=== PATIENT | male | born 1975 | race Caucasian/White ===

== ENCOUNTER 2018-03-24 09:53 | Observation (INO) ==
[2018-03-24] MEDS ORDERED: Nitroglycerin 0.4 MG TAB.SUBL SL ONE (10:00)
[2018-03-24] MEDS ORDERED: Aspirin 81 MG TAB.CHEW PO ONE (10:00)
--- NOTE | 2018-03-24 10:00 | Emergency Department Note ---
Disposition Clinical Impression: Atypical chest pain, Abnormal EKG, Tobacco abuse Disposition: Admitted As Inpatient Condition: Good Referrals: Jason Vicente [Primary Care Provider] - Time of Disposition: 12:54 General Adult HPI - General Chief complaint: ED Chest Pain Stated complaint: Chest pain Time Seen by Provider: 03/24/18 09:59 Nursing Notes Reviewed: Yes Vital Signs Reviewed: Yes - History of Present Illness HPI Narrative: Chest pain that began this morning after drinking cold water. Sharp in nature does not radiate. Does have associated nausea and warm feeling over his whole body. No associated shortness of breath or cough. Has not tried anything to make the pain better or worse it did resolve on its own. Pain Scale: 6 - Related Data Home Medications Medication Instructions Recorded Confirmed Escitalopram [Lexapro] 30 mg PO DAILY 03/24/18 03/24/18 Omeprazole [PriLOSEC] 40 mg PO DAILY PRN 03/24/18 03/24/18 Allergies Allergy/AdvReac Type Severity Reaction Status Date / Time No Known Allergies Allergy Verified 03/24/18 09:54 All systems ED: reviewed and negative except as stated. Constitutional: Denies: fever, chills ENT ED: Denies: congestion Cardiovascular: Reports: chest pain. Denies: palpitations, syncope Respiratory: Denies: cough, dyspnea Gastrointestinal: Reports: nausea. Denies: abdominal pain, vomiting, diarrhea Musculoskeletal: Denies: back pain, neck pain Integumentary: Denies: rash Past Medical History - Past Medical History Attestation: Yes The following information was validated with the patient. Source: patient Physical Exam - General Limitations: no limitations General appearance: alert, in no apparent distress - Head Head exam: atraumatic, normocephalic, normal inspection - Eye Eye exam: Present: normal appearance, PERRL, EOMI - ENT ENT exam: normal exam, normal oropharynx, mucous membranes moist - Neck Neck exam: Present: normal inspection, full ROM, trachea midline - Chest Chest inspection: Present: normal inspection, symmetric chest wall rise - Respiratory Respiratory exam: Present: normal lung sounds bilaterally. Absent: respiratory distress, accessory muscle use - Cardiovascular Cardiovascular exam: Present: regular rate, normal rhythm, normal heart sounds - Abdominal Exam Abdominal exam: Present: soft, Non-Tender. Absent: tenderness, distention, guarding, rebound, rigidity, organomegaly, Meadows's sign, Rovsing's sign, tenderness at McBurney's Point - Extremities Exam Extremities exam: Present: normal inspection, full ROM, normal capillary refill. Absent: tenderness, pedal edema - Neurological Exam Neurological exam: Present: alert, oriented X3 - Psychiatric Psychiatric exam: Present: normal affect, normal mood - Skin Skin exam: Present: warm, dry, intact, normal color Course Course Narrative: No patient presenting to the emergency department complaining of substernal chest pain that began this morning after drinking a drink of cold water. Fetus in the center of his chest. Did resolve. Lasted less than an hour. No radiation. No shortness of breath. Does have some nausea associated with this as well as a warm feeling over his body. He states that he has had feelings like this before that he contributes to anxiety. He does take Lexapro daily and has been taking this medication. Patient is a smoker. Did have a stress test and no cardiac catheter previously. Never had a heart attack before. Lung sounds are clear heart tones are normal abdomen is soft and nontender. He denies a productive cough. We will give patient aspirin and do a cardiac workup on the patient. - Reevaluation(s) Reevaluation #1: Patient reassessed. He states he is chest pain-free at this time. We were able to obtain an old EKG from another facility this did not show the T-wave inversions diffusely. We have provided patient with aspirin. Due to his chest pain and new EKG findings we will make patient to the hospital at this time. He is agreeable with this plan. Time: 12:51 - Consultations Consultation #1: Dr Hancock accepted Pt in stable condition. Time: 13:14 Vital Signs Temperature 98.3 F 03/24/18 09:54 Pulse Rate 83 03/24/18 09:54 Respiratory Rate 16 03/24/18 09:54 Blood Pressure 146/92 03/24/18 09:54 O2 Sat by Pulse Oximetry 97 03/24/18 09:54 Temperature 98.3 F 03/24/18 09:54 Pulse Rate 58 03/24/18 11:52 Respiratory Rate 18 03/24/18 10:55 Blood Pressure 120/86 03/24/18 11:52 O2 Sat by Pulse Oximetry 96 03/24/18 11:52 Oxygen Delivery Oxygen Delivery Room Air Medical Decision Making - Medical Records Medical records reviewed: Yes I reviewed the patient's medical records. - Lab Data Lab results reviewed: Yes I reviewed the patient's lab results. Result diagrams: 03/24/18 10:10 03/24/18 10:10 Lab Results 03/24/18 03/24/18 03/24/18 Range/Units 10:10 10:10 12:00 WBC 8.7 (4.3-11.1) K/mcL RBC 5.21 (4.19-5.50) M/mcL Hgb 16.5 (12.9-16.9) g/dL Hct 47.4 (37.5-50.1) % MCV 91.0 (83.0-100.0) fL MCH 31.7 (28.0-33.3) pg MCHC 34.8 (31.6-35.5) g/dL RDW 13.1 (11.5-14.5) % Plt Count 334 (140-400) K/mcL MPV 9.2 L (9.4-12.4) fL Immature Gran % 0.7 (0-4) % Seg Neutrophils % 60.4 % Lymphocytes % 24.1 % Monocytes % 10.9 % Eosinophils % 2.2 % Basophils % 1.7 % Neutrophils # 5.3 (1.6-8.9) K/mcL Lymphocytes # 2.1 (0.6-4.6) K/mcL Monocytes # 1.0 (0.0-1.3) K/mcL Eosinophils # 0.2 (0.0-0.6) K/mcL Basophils # 0.2 (0.0-0.2) K/mcL Sodium 136 (136-145) mEq/L Potassium 4.1 (3.5-5.1) mEq/L Chloride 105 (98-107) mEq/L Carbon Dioxide 23 (23-29) mEq/L BUN 13 (6-20) mg/dL Creatinine 0.98 (0.70-1.30) mg/dL Est GFR ( Amer) > 60 (> 60) Est GFR (Non-Af Amer) > 60 (> 60) BUN/Creatinine Ratio 13 (6-26) Glucose 132 H (70-105) mg/dL Calculated Osmolality 284 (280-300) Calcium 8.9 (8.6-10.3) mg/dL Troponin I < 0.03 < 0.03 (< 0.04) ng/mL - EKG Data EKG #1 EKG attestation: Yes I reviewed and interpreted this EKG. EKG results narrative: Normal sinus rhythm at a rate of 75. ID interval is 162. QRS duration is 94. QT is 396. QTC is 425. No signs of acute ischemia. No old EKG to compare to. Patient does have T-wave inversion in leads V3 and V4 V5 and V6. As well as aVL and lead 2 and 1 poor R-wave progression.
[2018-03-24 10:24] LABS: Basophils # 0.2 K/mcL (0.0-0.2); Basophils % 1.7 %; Eosinophils # 0.2 K/mcL (0.0-0.6); Eosinophils % 2.2 %; Hematocrit 47.4 % (37.5-50.1); Hemoglobin 16.5 g/dL (12.9-16.9); Immature Granulocytes % 0.7 % (0-4); Lymphocytes # 2.1 K/mcL (0.6-4.6); Lymphocytes % 24.1 %; Mean Corpuscular HGB Conc 34.8 g/dL (31.6-35.5); Mean Corpuscular Hemoglobin 31.7 pg (28.0-33.3); Mean Platelet Volume 9.2 fL (9.4-12.4); Monocytes % 10.9 %; Neutrophils # 5.3 K/mcL (1.6-8.9); Platelet Count 334 K/mcL (140-400); Red Blood Count 5.21 M/mcL (4.19-5.50); Red Cell Distribution Width 13.1 % (11.5-14.5); Segmented Neutrophils % 60.4 %
[2018-03-24 10:44] LABS: Troponin I < 0.03 ng/mL (< 0.04)
[2018-03-24 10:52] LABS: BUN/Creatinine Ratio 13 (6-26); Blood Urea Nitrogen 13 mg/dL (6-20); Calcium 8.9 mg/dL (8.6-10.3); Carbon Dioxide 23 mEq/L (23-29); Chloride 105 mEq/L (98-107); Glucose 132 mg/dL (70-105); Osmolality,Calculated 284 (280-300); Potassium 4.1 mEq/L (3.5-5.1); Sodium 136 mEq/L (136-145); eGFR For African Americans > 60 (> 60); eGFR For Non-African Americans > 60 (> 60)
--- NOTE | 2018-03-24 13:06 | Emergency Department Note ---
Disposition Clinical Impression: Atypical chest pain, Abnormal EKG, Tobacco abuse Disposition: Admitted As Inpatient Condition: Good Referrals: Jason Vicente [Primary Care Provider] - Time of Disposition: 13:08 Chest Pain HPI - General Chief Complaint: ED Chest Pain Stated Complaint: Chest pain Time Seen by Provider: 03/24/18 09:59 Limitations: no limitations Vital Signs Reviewed: Yes Nursing Notes Reviewed: Yes - History of Present Illness HPI Narrative: 42-year-old male presents ED because of chest pain. He began about one hour prior to arrival with sudden onset of substernal chest pain. Pain is nonradiating. Associated with nausea and a general sense of doom. No exertional provocation of symptoms recently. He had similar symptoms 5 years ago and underwent stress testing [facility] in [facility]. At that time stress testing and EKG were normal. Pt complaint: chest pain Duration: intermittent Pain Location: substernal Severity: moderate Severity scale (1-10): 6 Quality: tightness Improves with: nothing Worsens with: nothing Associated symptoms: Reports: nausea. Denies: dyspnea - Related Data Home Medications Medication Instructions Recorded Confirmed Escitalopram [Lexapro] 30 mg PO DAILY 03/24/18 03/24/18 Omeprazole [PriLOSEC] 40 mg PO DAILY PRN 03/24/18 03/24/18 Allergies Allergy/AdvReac Type Severity Reaction Status Date / Time No Known Allergies Allergy Verified 03/24/18 09:54 All systems ED: reviewed and negative except as stated. Constitutional: Denies: fever, chills ENT ED: Denies: congestion Cardiovascular: Reports: chest pain. Denies: palpitations, syncope Respiratory: Denies: cough, dyspnea Gastrointestinal: Reports: nausea. Denies: abdominal pain, vomiting, diarrhea Musculoskeletal: Denies: back pain, neck pain Integumentary: Denies: rash Chest Pain PMH - Social History Smoking Status: Current every day smoker Physical Exam - General Limitations: no limitations General appearance: alert, in no apparent distress - Head Head exam: atraumatic, normocephalic - Eye Eye exam: Present: normal appearance - ENT ENT exam: normal exam, normal oropharynx - Neck Neck exam: Present: normal inspection - Chest Chest inspection: Present: normal inspection, symmetric chest wall rise - Respiratory Respiratory exam: Present: normal lung sounds bilaterally. Absent: respiratory distress - Cardiovascular Cardiovascular exam: Present: regular rate, normal rhythm - Abdominal Exam Abdominal exam: Present: soft, Non-Tender - Extremities Exam Extremities exam: Absent: tenderness - Back Exam Back exam: Present: normal inspection. Absent: CVA tenderness (R), CVA tenderness (L) - Neurological Exam Neurological exam: Present: alert, oriented X3 - Psychiatric Psychiatric exam: Present: normal affect - Skin Skin exam: Present: warm, dry Course - Reevaluation(s) Reevaluation #1: Initial EKG is abnormal with ST and T abnormalities along the lateral leads. After 2 hours in the ED EKG was repeated while he was pain-free and the EKG remained the same. However, in comparison to last EKG done at [facility], these changes are new. Time: 13:08 Vital Signs Temperature 98.3 F 03/24/18 09:54 Pulse Rate 83 03/24/18 09:54 Respiratory Rate 16 03/24/18 09:54 Blood Pressure 146/92 03/24/18 09:54 O2 Sat by Pulse Oximetry 97 03/24/18 09:54 Temperature 98.3 F 03/24/18 09:54 Pulse Rate 58 03/24/18 11:52 Respiratory Rate 18 03/24/18 10:55 Blood Pressure 120/86 03/24/18 11:52 O2 Sat by Pulse Oximetry 96 03/24/18 11:52 Oxygen Delivery Oxygen Delivery Room Air Chest Pain - Lab Data Result diagrams: 03/24/18 10:10 03/24/18 10:10 Lab Results 03/24/18 03/24/18 03/24/18 Range/Units 10:10 10:10 12:00 WBC 8.7 (4.3-11.1) K/mcL RBC 5.21 (4.19-5.50) M/mcL Hgb 16.5 (12.9-16.9) g/dL Hct 47.4 (37.5-50.1) % MCV 91.0 (83.0-100.0) fL MCH 31.7 (28.0-33.3) pg MCHC 34.8 (31.6-35.5) g/dL RDW 13.1 (11.5-14.5) % Plt Count 334 (140-400) K/mcL MPV 9.2 L (9.4-12.4) fL Immature Gran % 0.7 (0-4) % Seg Neutrophils % 60.4 % Lymphocytes % 24.1 % Monocytes % 10.9 % Eosinophils % 2.2 % Basophils % 1.7 % Neutrophils # 5.3 (1.6-8.9) K/mcL Lymphocytes # 2.1 (0.6-4.6) K/mcL Monocytes # 1.0 (0.0-1.3) K/mcL Eosinophils # 0.2 (0.0-0.6) K/mcL Basophils # 0.2 (0.0-0.2) K/mcL Sodium 136 (136-145) mEq/L Potassium 4.1 (3.5-5.1) mEq/L Chloride 105 (98-107) mEq/L Carbon Dioxide 23 (23-29) mEq/L BUN 13 (6-20) mg/dL Creatinine 0.98 (0.70-1.30) mg/dL Est GFR ( Amer) > 60 (> 60) Est GFR (Non-Af Amer) > 60 (> 60) BUN/Creatinine Ratio 13 (6-26) Glucose 132 H (70-105) mg/dL Calculated Osmolality 284 (280-300) Calcium 8.9 (8.6-10.3) mg/dL Troponin I < 0.03 < 0.03 (< 0.04) ng/mL - EKG Data EKG attestation: Yes I reviewed and interpreted this EKG. EKG results narrative: Second EKG is performed: Normal sinus rhythm. Electrical indices within normal limits. [place] is normal. ST and T-wave abnormalities noted. No rhythm disturbances. Attestation Statement - Attestation Attestation: I examined this patient and my medical decision-making was reviewed with the Resident Physician. I agree with the documented findings, disposition and treatment plan as described except to the extent set forth below.
[2018-03-24] MEDS ORDERED: Acetaminophen 325 MG TABLET PO PRN (14:21)
[2018-03-24] MEDS ORDERED: Naloxone 0.4 MG/ML INJ IVP PRN (14:21)
--- NOTE | 2018-03-24 14:28 | Internal Med History&Physical ---
Date of Encounter: 03/24/18 Time of Encounter: 14:22 Internal Medicine - H&P: HPI Chief complaint: Chest pain Admitted From: Emergency Dept Plans for Post Hospital Care: Home History of present illness: Mr. Purvis is a 42 year old male with history of tobacco abuse, anxiety, GERD who presents through the ED as he started having sharp midsternal chest pain with no radiation with associated feeling of warmth throughout his body. The patient had a cold drink of water at the time when his symptoms started. 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 The pain had resolved by the time he arrived through her ED. He was hemodynamically stable. Laboratory workup including troponins were unremarkable. His EKG showed multiple T-wave inversions that were not there previously has he had T-wave inversions in leads V3, V4, V5, V6, aVL, and lead II which prompted his admission. The patient had a stress test about 5 years ago for similar complaints which was unremarkable. He has family history and his grandmother of heart disease. He is a smoker. Denies any headache, blurry vision, fever, chills, nausea, vomiting, shortness of breath, abdominal pain, diarrhea, constipation, urinary symptoms, or neurological symptoms. Past Med Surg Social Fam HX - Social History Smoking Status: Current every day smoker Internal Medicine - H&P: Meds Escitalopram [Lexapro] 30 mg PO DAILY 03/24/18 [History] Omeprazole [PriLOSEC] 40 mg PO DAILY PRN 03/24/18 [History] 3 Allergy/AdvReac Type Severity Reaction Status Date / Time No Known Allergies Allergy Verified 03/24/18 09:54 All Systems PM: A 10-system review of systems was performed and is negative for pertinent findings except as documented above in the HPI. Review of systems: All systems reviewed are negative except as mentioned above - Constitutional Vitals: Temp Pulse Resp BP Pulse Ox 98.3 F 86 16 126/86 97 03/24/18 09:54 03/24/18 12:20 03/24/18 13:36 03/24/18 13:36 03/24/18 12:20 Exam: GEN: NAD HEENT: AT, NC, No cyanosis, oral mucosa is moist, No JVD Lymphatics: No lymphadenoapthy Eyes: Extrocular muscles intact, anicteric CVS:RRR. S1, S2, No m/r/g RESP: CTAB ABD: Soft, NT, ND, +BS EXT: No edema, No rashes, 2+ DP NEURO: Nonfocal, CN II-XII intact, No focal motor or sensory deficits Psych: Cooperative, Not anxious or depressed Internal Med - H&P Results - Labs CBC & Chem 7: 03/24/18 10:10 03/24/18 10:10 - Assessment and plan (1) Chest pain Current Visit: Yes Status: Acute Assessment and plan: Admit to telemetry. Chest pain is likely from anxiety or GI/esophageal etiology , however, given his EKG changes with T-wave inversions in multiple leads, will order a stress test for the morning. Trend cardiac enzymes. Check A1c and lipid panel. Nothing by mouth after midnight. Qualifiers: Chest pain type: unspecified Qualified Code(s): R07.9 - Chest pain, unspecified (2) GERD (gastroesophageal reflux disease) Current Visit: Yes Status: Acute Assessment and plan: Continue PPI Qualifiers: Esophagitis presence: without esophagitis Qualified Code(s): K21.9 - Gastro -esophageal reflux disease without esophagitis (3) Anxiety Current Visit: Yes Status: Acute Assessment and plan: Continue Lexapro (4) DVT prophylaxis Current Visit: Yes Status: Acute Assessment and plan: Heparin subcutaneous (5) Tobacco abuse Current Visit: Yes Status: Acute - Time Spent With Patient Total time spent is greater than 50% in coordination of care (as documented) at patient's floor/unit and/or counseling patient:
[2018-03-24] MEDS: Nicotine 21 MG PATCH.TD24 TD SCH (14:56)
--- NOTE | 2018-03-24 16:35 | Electrocardiograph Report ---
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
[2018-03-24] MEDS: *HR* Heparin 5,000 UNIT/ML VIAL SQ SCH (20:08)
[2018-03-25 01:20] LABS: Chol/HDL Ratio 6.4 (0-4.9)
[2018-03-25 01:33] LABS: Thyroid Stimulating Hormone 2.509 mcIU/mL (0.340-5.600)
[2018-03-25] MEDS: *HR* Heparin 5,000 UNIT/ML VIAL SQ SCH (02:24)
[2018-03-25] MEDS ORDERED: Regadenoson 0.4 MG/5 ML SYRINGE IVP ONE (05:29)
[2018-03-25] MEDS: Nicotine 21 MG PATCH.TD24 TD SCH (07:41)
[2018-03-25 08:21] LABS: Estimated Average Glucose 137 mg/dl; Hemoglobin A1C 6.4 %
[2018-03-25 15:47] VITALS: BP 94/61
--- NOTE | 2018-03-25 16:00 | Discharge Summary ---
- NOTES TO OUTPATIENT PROVIDER Notes to Outpatient Provider: Follow-up with PCP within one week. Orders not resulted at time of discharge: Pending orders 03/25/18 06:00 NM [place] perf SPECT multi [NM] AM 0600 Date of Encounter: 03/25/18 Time of Encounter: 15:58 - Discharge Diagnosis (1) Tobacco abuse Priority: Secondary Status: Chronic (2) Chest pain Priority: Primary Status: Acute Qualifiers: Chest pain type: unspecified Qualified Code(s): R07.9 - Chest pain, unspecified (3) GERD (gastroesophageal reflux disease) Priority: Secondary Status: Chronic Assessment and Plan: Continue PPI Qualifiers: Esophagitis presence: without esophagitis Qualified Code(s): K21.9 - Gastro -esophageal reflux disease without esophagitis (4) Anxiety Priority: Secondary Status: Chronic [facility] and Plan[facility]: Mr. Purvis is a 42 year old male with history of tobacco abuse, anxiety, GERD who presents through the ED as he started having sharp midsternal chest pain with no radiation with associated feeling of warmth throughout his body. The patient had a cold drink of water at the time when his symptoms started. 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 The pain had resolved by the time he arrived through her ED. He was hemodynamically stable. Laboratory workup including troponins were unremarkable. His EKG showed multiple T-wave inversions that were there previously has he had T-wave inversions in leads V3, V4, V5, V6, aVL, and lead II which prompted his admission. He underwent a stress test as well, which was also normal. Patient will be discharged home today and follow-up with PCP within one week. Discharge discussed with: patient, family Time spent discussing smoking cessation with patient: more than 10 minutes - Time Spent with Patient Total time spent providing and/or coordinating discharge services: Less than 30 minutes - Discharge Medications Home Medications: Escitalopram [Lexapro] 30 mg PO DAILY 03/24/18 [History] Omeprazole [PriLOSEC] 40 mg PO DAILY PRN 03/24/18 [History] Nicotine Patch [Nicoderm] 21 mg TD DAILY patch.[id number] 03/25/18 [Rx] Allergies/Adverse Reactions: 3 Allergy/AdvReac Type Severity Reaction Status Date / Time No Known Allergies Allergy Verified 03/24/18 09:54 Date of admission: 03/24/18 13:20 Primary care physician: Jason Vicente Anticipated date of discharge: 03/25/18 - Constitutional Vitals: Temp Pulse Resp BP Pulse Ox 98.2 F 68 14 94/61 93 03/25/18 15:46 03/25/18 15:46 03/25/18 15:46 03/25/18 15:46 03/25/18 15:46 General appearance: Present: A&O X 3 Exam: PHYSICAL EXAMINATION: GENERAL APPEARANCE: The patient is alert, oriented and in no acute distress. HEENT: Head is normocephalic. The sinuses are nontender. Pupils are equal and reactive. The nares are patent. Oropharynx clear without lesions. NECK: Supple without lymphadenopathy. HEART: Regular rate and rhythm. LUNGS: No crackles or wheezes are heard. ABDOMEN: Soft, nontender, nondistended with good bowel sounds heard. Inguinal area is normal. EXTREMITIES: Without cyanosis, clubbing or edema. NEUROLOGICAL: Gross nonfocal. SKIN: Warm and dry without any rash. - Patient Status Disposition: Home, Self-Care Condition: Good Functional capacity at discharge: independent ambulation Overall status at discharge: patient is back to baseline - Discharge Instructions Follow Up With: Jason Vicente [Primary Care Provider] - Forms: ED Satisfaction Letter - Diet and Activity Activity: increase activity as tolerated Diet: advance to your usual diet
--- NOTE | 2018-03-26 11:18 | Electrocardiograph Report ---
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
--- NOTE | 2018-03-28 06:31 | Electrocardiograph Report ---
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 : 1975 Requested By: Antoinette Kaur Order Number: [id number] Reading MD: Sourav Butt Measurements Intervals [place] Rate: 75 P: 40 [place]: 162 QRS: -57 QRSD: 94 T: 95 QT: 396 QTc: 425 Interpretive Statements SINUS RHYTHM INDETERMINATE AXIS PATTERN CONSISTENT WITH PULMONARY DISEASE INCOMPLETE RIGHT BUNDLE BRANCH BLOCK [90+ ms QRS DURATION, TERMINAL R IN V1/V2, 40+ ms S IN I/aVL/V4/V5/V6] LEFT ANTERIOR FASCICULAR BLOCK [QRS AXIS <= -45, QR IN I, RS IN II] MODERATE T-WAVE ABNORMALITY, CONSIDER ANTEROLATERAL ISCHEMIA [-0.1+ mV T WAVE IN V3-V6] Electronically Signed On 03-28-2018 6:29:38 EDT by Sourav Butt
== END 2018-03-25 16:18 | disposition home or self-care (01) ==
LOC: 3BNU 09:53 → EMEROO 09:53 → 3BNU 14:07
PROVIDERS: ADMIT Internal Medicine; ATTEND Internal Medicine

== ENCOUNTER 2019-10-31 08:17 | Observation (INO) ==
[2019-10-31] MEDS ORDERED: Ibuprofen 600 MG TABLET PO ONE (08:32)
[2019-10-31] MEDS ORDERED: 0.9 % Sodium Chloride 1,000 ML IVC ONE (08:32)
[2019-10-31] MEDS ORDERED: *HR* Promethazine 25 MG/ML VIAL IVP ONE (08:35)
[2019-10-31 08:48] LABS: Basophils # 0.1 K/mcL (0.0-0.2); Basophils % 0.6 %; Eosinophils # 0.1 K/mcL (0.0-0.6); Eosinophils % 0.2 %; Hematocrit 42.8 % (37.5-50.1); Hemoglobin 15.1 g/dL (12.9-16.9); Immature Granulocytes % 0.8 % (0-4); Lymphocytes # 1.4 K/mcL (0.6-4.6); Lymphocytes % 6.1 %; Mean Corpuscular HGB Conc 35.3 g/dL (31.6-35.5); Mean Corpuscular Hemoglobin 29.8 pg (28.0-33.3); Mean Corpuscular Volume 84.6 fL (83.0-100.0); Mean Platelet Volume 8.8 fL (9.4-12.4); Monocytes # 2.3 K/mcL (0.0-1.3); Monocytes % 10.5 %; Neutrophils # 18.1 K/mcL (1.6-8.9); Platelet Count 459 K/mcL (140-400); Red Blood Count 5.06 M/mcL (4.19-5.50); Red Cell Distribution Width 12.8 % (11.5-14.5); Segmented Neutrophils % 81.8 %; White Blood Count 22.1 K/mcL (4.3-11.1)
[2019-10-31 09:06] LABS: Bilirubin,Urine Small (Negative); Blood,Urine Large (Negative); Glucose,Urine (UA) 500 mg/dL (Normal); Ketones,Urine Trace mg/dL (Negative); Leukocyte Esterase,Urine Trace (Negative); Nitrite,Urine Negative (Negative); Protein,Urine 100 mg/dL (Neg-Trace); Specific Gravity,Urine > 1.030 (1.010-1.025); Urobilinogen,Urine Normal (Normal)
[2019-10-31 09:07] LABS: RBC,Urine TNTC per hpf (0-3); Squamous Epithelial Cell,Urine Many per lpf (None-Few)
[2019-10-31 09:10] LABS: Clarity,Urine Slightly Cloudy (Clear); Color,Urine Dark Yellow (Yellow)
[2019-10-31 09:11] LABS: Alanine Aminotransferase 34 Units/L (7-52); Albumin 3.4 g/dL (3.5-5.7); Alkaline Phosphatase 55 Units/L (34-104); Aspartate Amino Transferase 17 Units/L (13-39); BUN/Creatinine Ratio 5 (6-26); Bilirubin,Direct 0.1 mg/dL (0.0-0.2); Bilirubin,Indirect 0.3 mg/dL (0.0-1.0); Bilirubin,Total 0.4 mg/dL (0.3-1.0); Blood Urea Nitrogen 5 mg/dL (6-20); Calcium 8.2 mg/dL (8.6-10.3); Carbon Dioxide 21 mEq/L (23-29); Chloride 97 mEq/L (98-107); Globulin 3.5 g/dL (2.4-3.5); Glucose 215 mg/dL (70-105); Lipase < 3 Units/L (11-82); Osmolality,Calculated 274 (280-300); Potassium 3.2 mEq/L (3.5-5.1); Sodium 130 mEq/L (136-145); Total Protein 6.9 g/dL (6.4-8.9); eGFR For African Americans > 60 (> 60); eGFR For Non-African Americans > 60 (> 60)
[2019-10-31 09:21] LABS: Hyaline Casts,Urine Few per lpf (None-Few)
[2019-10-31 09:22] LABS: Bacteria,Urine Many per hpf (None-Few); Mucus,Urine Few per lpf (Few)
[2019-10-31] MEDS ORDERED: 0.9 % Sodium Chloride 1,000 ML ONE (09:49)
[2019-10-31 10:20] LABS: VBG HCO3 22 mEq/L (21-27); VBG PCO2 32 mmHg (41-51); VBG PH 7.45 pH Units (7.32-7.42); VBG PO2 129 mmHg (25-50)
[2019-10-31] MEDS ORDERED: Ondansetron ODT 4 MG TAB.RAPDIS SL PRN (10:57)
[2019-10-31 11:37] LABS: Magnesium 1.7 mg/dL (1.6-2.6); Phosphorous 3.1 mg/dL (2.7-4.5)
[2019-10-31] MEDS: cefTRIAXone 2,000 MG in Water for inj. (sterile) 20 ML IVP SCH (11:58)
[2019-10-31] MEDS ORDERED: Dextrose Gel 15 GM/37.5 ML TUBE PO PRN ×2 (12:54)
[2019-10-31] MEDS ORDERED: *HR* Dextrose 50 % in Water (Syg) 50 ML SYRINGE IVP PRN (12:54)
[2019-10-31] MEDS ORDERED: D5% in Water 1,000 ML IVC PRN (12:54)
[2019-10-31] MEDS: 0.9 % Sodium Chloride 1,000 ML IVC SCH (14:39)
[2019-10-31 16:32] LABS: Sodium, Urine 110.4 mEq/L
[2019-10-31] MEDS: MetroNIDAZOLE 500 MG/100 ML 500 MG/100 ML BAG IVPB SCH ×2 (17:28→23:19)
[2019-10-31] MEDS: Acetaminophen 325 MG TABLET PO PRN ×2 (17:37→23:17)
[2019-10-31] MEDS: Insulin LISPRO 300 UNITS/3 ML VIAL SQ SCH (17:38)
[2019-10-31] MEDS: *HR* Heparin 5,000 UNIT/ML VIAL SQ SCH (19:49)
[2019-10-31 20:21] LABS: Adenovirus F 40/41 PCR Not detected (Not detect); Astrovirus PCR Not detected (Not detect); C.difficile Toxin A/B Gene PCR Not detected (Not detect); Campylobacter by PCR Not detected (Not detect); Cryptosporidium by PCR Not detected (Not detect); Cyclospora cayetanensis PCR Not detected (Not detect); E. coli O157 by PCR Not detected (Not detect); Entamoeba histolytica PCR Not detected (Not detect); Enteroaggregative E.coli(EAEC) Not detected (Not detect); Enteropathogenic E.coli(EPEC) Not detected (Not detect); Enterotoxigenic E.coli (ETEC) Not detected (Not detect); Giardia lamblia PCR Not detected (Not detect); Norovirus GI/GII PCR Not detected (Not detect); Plesiomonas shigelloides PCR Not detected (Not detect); Rotavirus A PCR Not detected (Not detect); Salmonella PCR Not detected (Not detect); Sapovirus PCR Not detected (Not detect); Shig/EnteroinvasiveE coli EIEC Not detected (Not detect); Shigalike tox-prod E coli STEC Not detected (Not detect); Vibrio PCR Not detected (Not detect); Vibrio cholerae PCR Not detected (Not detect); Yersinia enterocolitica PCR Not detected (Not detect)
[2019-11-01 04:50] LABS: Basophils # 0.1 K/mcL (0.0-0.2); Basophils % 0.6 %; Eosinophils # 0.1 K/mcL (0.0-0.6); Eosinophils % 0.8 %; Hematocrit 40.3 % (37.5-50.1); Hemoglobin 13.7 g/dL (12.9-16.9); Immature Granulocytes % 0.8 % (0-4); Lymphocytes # 1.5 K/mcL (0.6-4.6); Lymphocytes % 9.8 %; Mean Corpuscular Volume 88.4 fL (83.0-100.0); Monocytes # 2.5 K/mcL (0.0-1.3); Neutrophils # 11.2 K/mcL (1.6-8.9); Platelet Count 401 K/mcL (140-400); Red Blood Count 4.56 M/mcL (4.19-5.50); Red Cell Distribution Width 12.9 % (11.5-14.5); White Blood Count 15.5 K/mcL (4.3-11.1)
[2019-11-01 04:56] LABS: BUN/Creatinine Ratio 5 (6-26); Blood Urea Nitrogen 4 mg/dL (6-20); Calcium 8.2 mg/dL (8.6-10.3); Carbon Dioxide 26 mEq/L (23-29); Chloride 103 mEq/L (98-107); Glucose 129 mg/dL (70-105); Osmolality,Calculated 279 (280-300); Sodium 135 mEq/L (136-145); eGFR For African Americans > 60 (> 60); eGFR For Non-African Americans > 60 (> 60)
[2019-11-01 05:21] LABS: Platelet Estimate Normal (Normal); Reactive Lymphocytes Present (Not Present)
[2019-11-01] MEDS: *HR* Heparin 5,000 UNIT/ML VIAL SQ SCH ×2 (05:44→16:20)
[2019-11-01] MEDS: Insulin LISPRO 300 UNITS/3 ML VIAL SQ SCH ×3 (08:13→16:20)
[2019-11-01] MEDS: MetroNIDAZOLE 500 MG/100 ML 500 MG/100 ML BAG IVPB SCH ×2 (08:14→16:19)
[2019-11-01] MEDS: 0.9 % Sodium Chloride 1,000 ML IVC SCH (08:16)
[2019-11-01] MEDS: cefTRIAXone 2,000 MG in Water for inj. (sterile) 20 ML IVP SCH (12:29)
[2019-11-01] MEDS: Acetaminophen 325 MG TABLET PO PRN (16:19)
[2019-11-02] MEDS: MetroNIDAZOLE 500 MG/100 ML 500 MG/100 ML BAG IVPB SCH ×2 (00:02→09:00)
[2019-11-02] MEDS: Acetaminophen 325 MG TABLET PO PRN (00:05)
[2019-11-02] MEDS: *HR* Heparin 5,000 UNIT/ML VIAL SQ SCH (00:35)
[2019-11-02 05:54] LABS: Basophils # 0.1 K/mcL (0.0-0.2); Basophils % 0.8 %; Eosinophils # 0.2 K/mcL (0.0-0.6); Eosinophils % 1.7 %; Hematocrit 38.6 % (37.5-50.1); Hemoglobin 13.2 g/dL (12.9-16.9); Lymphocytes # 1.4 K/mcL (0.6-4.6); Lymphocytes % 11.8 %; Mean Corpuscular HGB Conc 34.2 g/dL (31.6-35.5); Mean Corpuscular Hemoglobin 29.7 pg (28.0-33.3); Mean Corpuscular Volume 86.7 fL (83.0-100.0); Mean Platelet Volume 9.1 fL (9.4-12.4); Monocytes # 1.7 K/mcL (0.0-1.3); Monocytes % 14.2 %; Neutrophils # 8.2 K/mcL (1.6-8.9); Platelet Count 395 K/mcL (140-400); Red Blood Count 4.45 M/mcL (4.19-5.50); Red Cell Distribution Width 12.8 % (11.5-14.5); Segmented Neutrophils % 70.5 %; White Blood Count 11.6 K/mcL (4.3-11.1)
[2019-11-02 06:12] LABS: BUN/Creatinine Ratio 8 (6-26); Blood Urea Nitrogen 6 mg/dL (6-20); Calcium 7.8 mg/dL (8.6-10.3); Carbon Dioxide 28 mEq/L (23-29); Chloride 100 mEq/L (98-107); Glucose 132 mg/dL (70-105); Osmolality,Calculated 281 (280-300); Potassium 3.5 mEq/L (3.5-5.1); Sodium 136 mEq/L (136-145); eGFR For African Americans > 60 (> 60); eGFR For Non-African Americans > 60 (> 60)
[2019-11-02 06:50] VITALS: BP 102/69
[2019-11-02] MEDS ORDERED: cefTRIAXone 1,000 MG in Water for inj. (sterile) 10 ML IVP ONE (08:29)
[2019-11-02] MEDS: Insulin LISPRO 300 UNITS/3 ML VIAL SQ SCH (09:09)
== END 2019-11-02 10:42 | disposition home or self-care (01) ==
LOC: EMEROOARM 08:17 → 3BNU 08:17 → SUATTDRO 11:31 → 3BNU 11:33
PROVIDERS: ADMIT Internal Medicine; ATTEND Internal Medicine

== ENCOUNTER 2020-02-19 19:35 | Inpatient (IN) ==
[2020-02-19 20:06] LABS: Basophils # 0.1 K/mcL (0.0-0.2); Basophils % 0.5 %; Eosinophils # 0.1 K/mcL (0.0-0.6); Eosinophils % 0.6 %; Hematocrit 43.8 % (37.5-50.1); Hemoglobin 14.9 g/dL (12.9-16.9); Immature Granulocytes % 0.6 % (0-4); Lymphocytes # 1.1 K/mcL (0.6-4.6); Lymphocytes % 7.7 %; Mean Corpuscular Hemoglobin 30.1 pg (28.0-33.3); Mean Corpuscular Volume 88.5 fL (83.0-100.0); Monocytes # 1.6 K/mcL (0.0-1.3); Monocytes % 11.6 %; Platelet Count 405 K/mcL (140-400); Red Blood Count 4.95 M/mcL (4.19-5.50); Red Cell Distribution Width 12.8 % (11.5-14.5); White Blood Count 13.9 K/mcL (4.3-11.1)
[2020-02-19 20:29] LABS: Alanine Aminotransferase 19 Units/L (7-52); Albumin 3.4 g/dL (3.5-5.7); Alkaline Phosphatase 55 Units/L (34-104); Aspartate Amino Transferase 14 Units/L (13-39); BUN/Creatinine Ratio 10 (6-26); Bilirubin,Direct 0.1 mg/dL (0.0-0.2); Bilirubin,Indirect 0.2 mg/dL (0.0-1.0); Bilirubin,Total 0.3 mg/dL (0.3-1.0); Blood Urea Nitrogen 10 mg/dL (6-20); Calcium 8.5 mg/dL (8.6-10.3); Carbon Dioxide 21 mEq/L (23-29); Chloride 100 mEq/L (98-107); Globulin 3.5 g/dL (2.4-3.5); Glucose 204 mg/dL (70-105); Lipase 11 Units/L (11-82); Osmolality,Calculated 277 (280-300); Potassium 2.9 mEq/L (3.5-5.1); Sodium 131 mEq/L (136-145); Total Protein 6.9 g/dL (6.4-8.9); eGFR For African Americans > 60 (> 60); eGFR For Non-African Americans > 60 (> 60)
[2020-02-19] MEDS ORDERED: Isovue-370 500 ML BOTTLE IVP ONE (20:31)
[2020-02-19] MEDS ORDERED: *HR* FentaNYL (PF) 100 MCG/2 ML VIAL IVP ONE (20:32)
[2020-02-19] MEDS ORDERED: 0.9 % Sodium Chloride 1,000 ML IVC ONE ×2 (20:32→23:30)
[2020-02-19] MEDS ORDERED: Ondansetron 4 MG/2 ML VIAL IVP ONE (20:32)
[2020-02-19 20:41] LABS: Bilirubin,Urine Negative (Negative); Blood,Urine Moderate (Negative); Clarity,Urine Clear (Clear); Color,Urine Yellow (Yellow); Glucose,Urine (UA) >=1000 mg/dL (Normal); Ketones,Urine Negative (Negative); Leukocyte Esterase,Urine Negative (Negative); Nitrite,Urine Negative (Negative); PH,Urine 6.5 pH Units (5.0-8.0); Protein,Urine Trace mg/dL (Neg-Trace); Specific Gravity,Urine > 1.030 (1.010-1.025); Urobilinogen,Urine Normal (Normal)
[2020-02-19 20:43] LABS: Bacteria,Urine None Seen per hpf (None-Few); Hyaline Casts,Urine None Seen per lpf (None-Few); RBC,Urine 0-3 per hpf (0-3); Squamous Epithelial Cell,Urine Many per lpf (None-Few); WBC,Urine 0-3 per hpf (0-3)
[2020-02-19 20:56] LABS: Triple Phosphate Crystal,Urine Present
[2020-02-19] MEDS ORDERED: Potassium Effervescent 25 MEQ TABLET.EFF PO ONE (23:29)
[2020-02-19] MEDS ORDERED: Piperacillin/Tazobactam 3.375 GM in Water for inj. (sterile) 20 ML IVP ONE (23:51)
[2020-02-20] MEDS ORDERED: 0.9 % Sodium Chloride 500 ML IVC ONE (00:03)
[2020-02-20] MEDS ORDERED: Naloxone 0.4 MG/ML INJ IVP PRN (00:42)
[2020-02-20 01:48] LABS: Hematocrit 43.8 % (37.5-50.1); Hemoglobin 14.8 g/dL (12.9-16.9); INR 1.3; Mean Corpuscular HGB Conc 33.8 g/dL (31.6-35.5); Mean Corpuscular Hemoglobin 30.9 pg (28.0-33.3); Mean Corpuscular Volume 91.4 fL (83.0-100.0); Mean Platelet Volume 9.1 fL (9.4-12.4); Platelet Count 336 K/mcL (140-400); Prothrombin Time 14.7 Seconds (9.4-12.1); Red Blood Count 4.79 M/mcL (4.19-5.50); White Blood Count 12.9 K/mcL (4.3-11.1)
[2020-02-20 01:52] LABS: BUN/Creatinine Ratio 9 (6-26); Blood Urea Nitrogen 8 mg/dL (6-20); Calcium 7.8 mg/dL (8.6-10.3); Carbon Dioxide 24 mEq/L (23-29); Chloride 104 mEq/L (98-107); Chol/HDL Ratio 4.6 (0-4.9); Cholesterol 110 mg/dL (< 200); Glucose 113 mg/dL (70-105); HDL Cholesterol 24 mg/dL (40-59); LDL Cholesterol,Calculated 68 mg/dL (0-99); Osmolality,Calculated 277 (280-300); Phosphorous 3.7 mg/dL (2.7-4.5); Potassium 3.2 mEq/L (3.5-5.1); Sodium 134 mEq/L (136-145); Triglycerides 88 mg/dL (< 150); eGFR For African Americans > 60 (> 60); eGFR For Non-African Americans > 60 (> 60)
[2020-02-20] MEDS: *HR* Promethazine 25 MG/ML VIAL IVP PRN (01:52)
[2020-02-20] MEDS: 0.9 % Sodium Chloride 1,000 ML IVC SCH ×2 (01:53→10:49)
[2020-02-20] MEDS ORDERED: *HR* Dextrose 50 % in Water (Syg) 50 ML SYRINGE IVP PRN (02:09)
[2020-02-20] MEDS ORDERED: Dextrose Gel 15 GM/37.5 ML TUBE PO PRN ×2 (02:09)
[2020-02-20] MEDS ORDERED: D5% in Water 1,000 ML IVC PRN (02:09)
[2020-02-20] MEDS: *HR* Heparin 5,000 UNIT/ML VIAL SQ SCH ×3 (05:11→21:19)
[2020-02-20] MEDS ORDERED: Potassium Chloride 40 MEQ, Lidocaine 1% 2 ML in 0.9 % Sodium Chloride 500 ML IVPB ONE (08:06)
[2020-02-20] MEDS: Insulin LISPRO 300 UNITS/3 ML VIAL SQ SCH ×4 (08:20→21:14)
[2020-02-20] MEDS: Acetaminophen 325 MG TABLET PO PRN (10:25)
[2020-02-20] MEDS: Piperacillin/Tazobactam 3.375 GM in 0.9 % Sodium Chloride Mini Bag 100 ML IVPB SCH ×2 (10:59→18:32)
[2020-02-20 11:13] LABS: Adenovirus F 40/41 PCR Not detected (Not detect); Astrovirus PCR Not detected (Not detect); C.difficile Toxin A/B Gene PCR Not detected (Not detect); Campylobacter by PCR Not detected (Not detect); Cryptosporidium by PCR Not detected (Not detect); Cyclospora cayetanensis PCR Not detected (Not detect); E. coli O157 by PCR Not detected (Not detect); Entamoeba histolytica PCR Not detected (Not detect); Enteroaggregative E.coli(EAEC) Not detected (Not detect); Enteropathogenic E.coli(EPEC) Not detected (Not detect); Enterotoxigenic E.coli (ETEC) Not detected (Not detect); Giardia lamblia PCR Not detected (Not detect); Norovirus GI/GII PCR Not detected (Not detect); Plesiomonas shigelloides PCR Not detected (Not detect); Rotavirus A PCR Not detected (Not detect); Salmonella PCR Not detected (Not detect); Sapovirus PCR Not detected (Not detect); Shig/EnteroinvasiveE coli EIEC Not detected (Not detect); Shigalike tox-prod E coli STEC Not detected (Not detect); Vibrio PCR Not detected (Not detect); Vibrio cholerae PCR Not detected (Not detect); Yersinia enterocolitica PCR Not detected (Not detect)
[2020-02-20] MEDS ORDERED: Piperacillin/Tazobactam 3.375 GM in 0.9 % Sodium Chloride Mini Bag 100 ML IVPB SCH (16:00)
[2020-02-20] MEDS ORDERED: Ibuprofen 600 MG TABLET PO ONE (17:57)
[2020-02-21] MEDS: Piperacillin/Tazobactam 3.375 GM in 0.9 % Sodium Chloride Mini Bag 100 ML IVPB SCH ×3 (02:12→18:59)
[2020-02-21] MEDS: *HR* Promethazine 25 MG/ML VIAL IVP PRN (03:40)
[2020-02-21 05:00] LABS: Basophils # 0.1 K/mcL (0.0-0.2); Basophils % 0.5 %; Eosinophils # 0.1 K/mcL (0.0-0.6); Eosinophils % 0.5 %; Hematocrit 39.9 % (37.5-50.1); Immature Granulocytes % 0.7 % (0-4); Lymphocytes # 0.9 K/mcL (0.6-4.6); Lymphocytes % 6.9 %; Mean Corpuscular HGB Conc 33.1 g/dL (31.6-35.5); Mean Corpuscular Hemoglobin 29.9 pg (28.0-33.3); Mean Corpuscular Volume 90.5 fL (83.0-100.0); Mean Platelet Volume 9.3 fL (9.4-12.4); Monocytes # 1.8 K/mcL (0.0-1.3); Monocytes % 13.9 %; Neutrophils # 10.1 K/mcL (1.6-8.9); Platelet Count 372 K/mcL (140-400); Red Blood Count 4.41 M/mcL (4.19-5.50); Red Cell Distribution Width 12.8 % (11.5-14.5); Segmented Neutrophils % 77.5 %
[2020-02-21 05:14] LABS: Hemoglobin 13.2 g/dL (12.9-16.9)
[2020-02-21 05:17] LABS: BUN/Creatinine Ratio 5 (6-26); Blood Urea Nitrogen 4 mg/dL (6-20); Carbon Dioxide 23 mEq/L (23-29); Chloride 102 mEq/L (98-107); Glucose 150 mg/dL (70-105); Osmolality,Calculated 274 (280-300); Sodium 132 mEq/L (136-145); eGFR For African Americans > 60 (> 60); eGFR For Non-African Americans > 60 (> 60)
[2020-02-21] MEDS: *HR* Heparin 5,000 UNIT/ML VIAL SQ SCH ×3 (05:40→21:13)
[2020-02-21] MEDS: Acetaminophen 325 MG TABLET PO PRN ×2 (05:40→21:12)
[2020-02-21 06:08] LABS: Large Platelets Present (Not Present); Reactive Lymphocytes Present (Not Present)
[2020-02-21 06:09] LABS: Platelet Estimate Normal (Normal)
[2020-02-21] MEDS: Insulin LISPRO 300 UNITS/3 ML VIAL SQ SCH ×4 (08:25→22:24)
[2020-02-21] MEDS: 0.9 % Sodium Chloride 1,000 ML IVC SCH ×2 (12:44→22:23)
[2020-02-22] MEDS: Piperacillin/Tazobactam 3.375 GM in 0.9 % Sodium Chloride Mini Bag 100 ML IVPB SCH ×3 (03:34→17:57)
[2020-02-22 03:48] LABS: Basophils # 0.1 K/mcL (0.0-0.2); Basophils % 0.8 %; Eosinophils # 0.1 K/mcL (0.0-0.6); Eosinophils % 0.6 %; Hematocrit 39.4 % (37.5-50.1); Hemoglobin 13.2 g/dL (12.9-16.9); Immature Granulocytes % 0.9 % (0-4); Lymphocytes # 1.2 K/mcL (0.6-4.6); Lymphocytes % 9.8 %; Mean Corpuscular HGB Conc 33.5 g/dL (31.6-35.5); Mean Corpuscular Hemoglobin 29.9 pg (28.0-33.3); Mean Corpuscular Volume 89.3 fL (83.0-100.0); Monocytes # 1.9 K/mcL (0.0-1.3); Monocytes % 15.5 %; Neutrophils # 8.9 K/mcL (1.6-8.9); Platelet Count 389 K/mcL (140-400); Red Blood Count 4.41 M/mcL (4.19-5.50); Red Cell Distribution Width 12.8 % (11.5-14.5); Segmented Neutrophils % 72.4 %; White Blood Count 12.3 K/mcL (4.3-11.1)
[2020-02-22 04:06] LABS: Platelet Estimate Normal (Normal); Reactive Lymphocytes Present (Not Present)
[2020-02-22 04:08] LABS: BUN/Creatinine Ratio 6 (6-26); Blood Urea Nitrogen 4 mg/dL (6-20); Calcium 7.9 mg/dL (8.6-10.3); Carbon Dioxide 23 mEq/L (23-29); Chloride 102 mEq/L (98-107); Glucose 130 mg/dL (70-105); Osmolality,Calculated 275 (280-300); Potassium 2.8 mEq/L (3.5-5.1); Sodium 133 mEq/L (136-145); eGFR For African Americans > 60 (> 60); eGFR For Non-African Americans > 60 (> 60)
[2020-02-22] MEDS: Lactobacillus 1 EACH CAP.SPRINK PO SCH (07:22)
[2020-02-22] MEDS: *HR* Heparin 5,000 UNIT/ML VIAL SQ SCH ×3 (07:22→21:04)
[2020-02-22] MEDS: Insulin LISPRO 300 UNITS/3 ML VIAL SQ SCH ×4 (07:24→20:59)
[2020-02-22] MEDS ORDERED: Potassium Chloride Elixir 20 MEQ/15 ML UDC PO ONE (09:23)
[2020-02-22] MEDS ORDERED: Ringers Solution, Lactated 1,000 ML IVC SCH (09:30)
[2020-02-22] MEDS ORDERED: metroNIDAZOLE 500 MG TABLET PO SCH (15:00)
[2020-02-22] MEDS: MethylPREDNISolone 40 MG/ML VIAL IVP SCH (15:08)
[2020-02-23] MEDS: Piperacillin/Tazobactam 3.375 GM in 0.9 % Sodium Chloride Mini Bag 100 ML IVPB SCH (03:28)
[2020-02-23 05:58] LABS: BUN/Creatinine Ratio 14 (6-26); Blood Urea Nitrogen 10 mg/dL (6-20); Calcium 8.6 mg/dL (8.6-10.3); Carbon Dioxide 25 mEq/L (23-29); Chloride 102 mEq/L (98-107); Glucose 187 mg/dL (70-105); Osmolality,Calculated 284 (280-300); Potassium 3.1 mEq/L (3.5-5.1); Sodium 135 mEq/L (136-145); eGFR For African Americans > 60 (> 60); eGFR For Non-African Americans > 60 (> 60)
[2020-02-23] MEDS: *HR* Heparin 5,000 UNIT/ML VIAL SQ SCH (06:11)
[2020-02-23 06:56] VITALS: BP 106/70
[2020-02-23] MEDS: Insulin LISPRO 300 UNITS/3 ML VIAL SQ SCH (08:05)
[2020-02-23] MEDS: MethylPREDNISolone 40 MG/ML VIAL IVP SCH (08:06)
[2020-02-23] MEDS: Lactobacillus 1 EACH CAP.SPRINK PO SCH (08:06)
[2020-02-26 08:03] LABS: Pancreatic Elastase, Fecal 149 ug/g (>=201)
[2020-02-27 10:20] LABS: Calprotectin, Fecal 110 ug/g (<=50)
== END 2020-02-23 10:46 | disposition home or self-care (01) | DRG 872 ==
LOC: 3ANU 19:35 → EMEROOARM 19:35 → SUATTDRO 02-20 00:09 → 3ANU 02-20 01:19 → SUATTDRO 02-21 13:30
PROVIDERS: ADMIT Internal Medicine; ATTEND Internal Medicine

== ENCOUNTER 2021-01-06 09:36 | Observation (INO) ==
[2021-01-06 11:16] LABS: Basophils # 0.2 K/mcL (0.0-0.2); Eosinophils # 0.2 K/mcL (0.0-0.6); Eosinophils % 1.6 %; Hematocrit 46.2 % (37.5-50.1); Hemoglobin 15.5 g/dL (12.9-16.9); Immature Granulocytes % 0.5 % (0-4); Lymphocytes # 1.5 K/mcL (0.6-4.6); Lymphocytes % 10.5 %; Mean Corpuscular HGB Conc 33.5 g/dL (31.6-35.5); Mean Corpuscular Hemoglobin 30.8 pg (28.0-33.3); Mean Corpuscular Volume 91.8 fL (83.0-100.0); Mean Platelet Volume 9.2 fL (9.4-12.4); Monocytes # 1.1 K/mcL (0.0-1.3); Monocytes % 7.7 %; Neutrophils # 11.4 K/mcL (1.6-8.9); Platelet Count 364 K/mcL (140-400); Red Blood Count 5.03 M/mcL (4.19-5.50); Red Cell Distribution Width 13.2 % (11.5-14.5); Segmented Neutrophils % 78.7 %; White Blood Count 14.5 K/mcL (4.3-11.1)
[2021-01-06 11:31] LABS: BUN/Creatinine Ratio 9 (6-26); Blood Urea Nitrogen 7 mg/dL (6-20); Calcium 8.6 mg/dL (8.6-10.3); Carbon Dioxide 26 mEq/L (23-29); Chloride 103 mEq/L (98-107); Glucose 95 mg/dL (70-105); Osmolality,Calculated 282 (280-300); Potassium 3.3 mEq/L (3.5-5.1); Sodium 137 mEq/L (136-145); eGFR For African Americans > 60 (> 60); eGFR For Non-African Americans > 60 (> 60)
[2021-01-06] MEDS ORDERED: Isovue-370 500 ML BOTTLE IVP ONE (11:33)
[2021-01-06] MEDS ORDERED: Ondansetron 4 MG/2 ML VIAL IVP ONE (11:33)
[2021-01-06] MEDS ORDERED: Morphine Sulfate Immed Rel 15 MG TABLET PO STA ×2 (11:33→15:29)
[2021-01-06 12:03] LABS: Bacteria,Urine Few per hpf (None-Few); Bilirubin,Urine Negative (Negative); Blood,Urine Moderate (Negative); Clarity,Urine Clear (Clear); Color,Urine Yellow (Yellow); Glucose,Urine (UA) >=1000 mg/dL (Normal); Ketones,Urine Negative (Negative); Leukocyte Esterase,Urine Negative (Negative); Nitrite,Urine Negative (Negative); Protein,Urine Trace mg/dL (Neg-Trace); Specific Gravity,Urine > 1.030 (1.010-1.025); Squamous Epithelial Cell,Urine Few per hpf (None-Few); Urobilinogen,Urine Normal (Normal); WBC,Urine 0-3 per hpf (0-3)
[2021-01-06] MEDS ORDERED: Piperacillin/Tazobactam 3.375 GM in Water for inj. (sterile) 20 ML IVP ONE (14:15)
[2021-01-06] MEDS ORDERED: *HR* FentaNYL (PF) 100 MCG/2 ML VIAL IVP ONE (15:00)
[2021-01-06] MEDS: MethylPREDNISolone 40 MG/ML VIAL IVP SCH ×2 (15:20→23:43)
[2021-01-06 15:43] LABS: Hepatitis B Surface Antigen Nonreactive (Nonreactive)
[2021-01-06 16:12] LABS: Hepatitis C Virus Antibody Nonreactive (Nonreactive)
[2021-01-06 16:13] LABS: Hepatitis A Antibody IgM Nonreactive (Nonreactive); Hepatitis B Core IgM Nonreactive (Nonreactive)
[2021-01-06] MEDS ORDERED: Naloxone 0.4 MG/ML INJ IVP PRN (16:55)
[2021-01-06] MEDS ORDERED: Dextrose Gel 15 GM/37.5 ML TUBE PO PRN ×2 (17:57)
[2021-01-06] MEDS ORDERED: *HR* Dextrose 50 % in Water (Vial) 50 ML VIAL IVP PRN (17:57)
[2021-01-06] MEDS ORDERED: D5% in Water 1,000 ML IVC PRN (17:57)
[2021-01-06] MEDS: Insulin LISPRO 300 UNITS/3 ML VIAL SUBQ SCH (18:06)
[2021-01-06] MEDS: 0.9 % Sodium Chloride 1,000 ML IVC SCH (18:08)
[2021-01-06] MEDS: Piperacillin/Tazobactam 3.375 GM in 0.9 % Sodium Chloride Mini Bag 100 ML IVPB SCH (20:26)
[2021-01-07] MEDS: Insulin LISPRO 300 UNITS/3 ML VIAL SUBQ SCH ×3 (00:52→13:30)
[2021-01-07 05:43] LABS: Basophils % 0.2 %; Eosinophils % 0.1 %; Hematocrit 45.8 % (37.5-50.1); Immature Granulocytes % 0.5 % (0-4); Lymphocytes # 1.3 K/mcL (0.6-4.6); Lymphocytes % 7.5 %; Mean Corpuscular HGB Conc 32.8 g/dL (31.6-35.5); Mean Corpuscular Volume 91.6 fL (83.0-100.0); Mean Platelet Volume 9.2 fL (9.4-12.4); Monocytes # 0.5 K/mcL (0.0-1.3); Monocytes % 2.8 %; Neutrophils # 15.3 K/mcL (1.6-8.9); Platelet Count 374 K/mcL (140-400); Segmented Neutrophils % 88.9 %; White Blood Count 17.2 K/mcL (4.3-11.1)
[2021-01-07 06:00] LABS: BUN/Creatinine Ratio 13 (6-26); Blood Urea Nitrogen 11 mg/dL (6-20); Calcium 9.2 mg/dL (8.6-10.3); Carbon Dioxide 24 mEq/L (23-29); Chloride 106 mEq/L (98-107); Glucose 154 mg/dL (70-105); Osmolality,Calculated 290 (280-300); Potassium 3.7 mEq/L (3.5-5.1); Sodium 139 mEq/L (136-145); eGFR For African Americans > 60 (> 60); eGFR For Non-African Americans > 60 (> 60)
[2021-01-07] MEDS: Piperacillin/Tazobactam 3.375 GM in 0.9 % Sodium Chloride Mini Bag 100 ML IVPB SCH ×3 (06:34→20:19)
[2021-01-07] MEDS: MethylPREDNISolone 40 MG/ML VIAL IVP SCH ×3 (07:45→23:36)
[2021-01-07] MEDS: 0.9 % Sodium Chloride 1,000 ML IVC SCH (13:41)
[2021-01-08] MEDS: Piperacillin/Tazobactam 3.375 GM in 0.9 % Sodium Chloride Mini Bag 100 ML IVPB SCH (05:31)
[2021-01-08 06:22] LABS: Basophils % 0.3 %; Eosinophils % 0.1 %; Hemoglobin 14.2 g/dL (12.9-16.9); Immature Granulocytes % 0.4 % (0-4); Lymphocytes # 1.3 K/mcL (0.6-4.6); Lymphocytes % 11.2 %; Mean Corpuscular HGB Conc 32.3 g/dL (31.6-35.5); Mean Corpuscular Hemoglobin 29.5 pg (28.0-33.3); Mean Corpuscular Volume 91.5 fL (83.0-100.0); Mean Platelet Volume 9.3 fL (9.4-12.4); Monocytes # 0.5 K/mcL (0.0-1.3); Monocytes % 4.4 %; Platelet Count 373 K/mcL (140-400); Red Blood Count 4.81 M/mcL (4.19-5.50); Red Cell Distribution Width 13.1 % (11.5-14.5); Segmented Neutrophils % 83.6 %; White Blood Count 11.9 K/mcL (4.3-11.1)
[2021-01-08 06:38] LABS: BUN/Creatinine Ratio 19 (6-26); Blood Urea Nitrogen 15 mg/dL (6-20); Calcium 8.6 mg/dL (8.6-10.3); Carbon Dioxide 26 mEq/L (23-29); Chloride 106 mEq/L (98-107); Glucose 181 mg/dL (70-105); Osmolality,Calculated 291 (280-300); Potassium 3.9 mEq/L (3.5-5.1); Sodium 138 mEq/L (136-145); eGFR For African Americans > 60 (> 60); eGFR For Non-African Americans > 60 (> 60)
[2021-01-08] MEDS: MethylPREDNISolone 40 MG/ML VIAL IVP SCH (09:42)
[2021-01-08] MEDS: Insulin LISPRO 300 UNITS/3 ML VIAL SUBQ SCH ×2 (10:03→13:03)
[2021-01-08 14:56] VITALS: BP 113/75
[2021-01-09 03:50] LABS: QuantiFERON Mitogen minus NIL 7.63 IU/mL
[2021-01-09 14:44] LABS: QuantiFERON NIL 0.02 IU/mL; QuantiFERON-TB Gold In-Tube NEGATIVE (Negative)
== END 2021-01-08 15:18 | disposition home or self-care (01) ==
LOC: 3ANU 09:36 → EMEROOARM 09:36 → SUATTDRO 15:29 → 3ANU 16:27
PROVIDERS: ADMIT General Practice; ATTEND Registered Nurse